=== PATIENT | female | born 1965 | race Caucasian/White ===

== ENCOUNTER → 2023-11-12 10:15 | Outpatient (REF) | payer BC, SELFPAY | LOC: HWRAD 10:15 | PROVIDERS: ATTENDING PHYSICIAN Podiatrist Foot & Ankle Surgery; FAMILY PHYSICIAN Family Medicine | DX: G57.62 Lesion of plantar nerve, left lower limb (principal) | CPT/HCPCS: 73630 ==

== ENCOUNTER → 2024-04-26 12:30 | Outpatient (REF) | payer BC, SELFPAY | LOC: CLAB 12:30 | PROVIDERS: ATTENDING PHYSICIAN Podiatrist Foot & Ankle Surgery | DX: G57.62 Lesion of plantar nerve, left lower limb (principal) | CPT/HCPCS: 88304 ==